=== PATIENT | female | born 1945 | race Caucasian/White ===

== ENCOUNTER → 2018-05-12 08:28 | Outpatient (CLI) | payer MEDICARE, SELFPAY ==
--- NOTE | 2018-05-12 | DI.MG.S_ITS ---
BILATERAL DIGITAL SCREENING MAMMOGRAM 3D/2D WITH CAD: 05/12/2018 CLINICAL: Routine screening. Comparison is made to exams dated: 07/30/2015 mammogram, 12/21/2012 mammogram, and 03/18/2010 mammogram - [facility]. There are scattered fibroglandular elements in both breasts. Current study was also evaluated with a Computer Aided Detection (CAD) system. There is an oval mass in the left breast at 3 o'clock middle depth. No other significant masses, calcifications, or other findings are seen in either breast. IMPRESSION: INCOMPLETE: NEEDS ADDITIONAL IMAGING EVALUATION The oval mass in the left breast likely represents a cyst and is indeterminate. Additional views with possible ultrasound are recommended. This exam was interpreted at Station ID: [id number]. NOTE: For mammograms, a report in lay terms will be sent to the patient. Approximately 15% of breast malignancies will not be visualized mammographically. In the management of a palpable breast mass, a negative mammogram must not discourage biopsy of a clinically suspicious lesion. Electronically Signed By: Riya walters/irvin:05/12/2018 10:55:50 letter sent: Additional Imaging Needed ACR BI-RADS Category 0: Incomplete [id number]
== END ==
PROVIDERS: PCP Physician Assistant; Visit Provider Physician Assistant
DX: Z12.31 Encounter for screening mammogram for malignant neoplasm of breast (principal); R92.8 Other abnormal and inconclusive findings on diagnostic imaging of breast; M85.851 Other specified disorders of bone density and structure, right thigh
CPT/HCPCS: 77063; 77067; 77080

== ENCOUNTER → 2018-05-21 08:34 | Outpatient (CLI) | payer MEDICARE, SELFPAY ==
--- NOTE | 2018-05-21 08:35 | DI.MG.S_ITS ---
UNILATERAL LEFT DIGITAL DIAGNOSTIC MAMMOGRAM 3D/2D WITH ADDITIONAL VIEWS: 05/21/2018 CLINICAL: Additional evaluation requested from prior study. Comparison is made to exams dated: 05/12/2018 mammogram - [facility], 07/30/2015 mammogram, and 12/21/2012 mammogram - [facility]. There are scattered fibroglandular elements in the left breast. The oval mass in the left breast at 3 o'clock middle depth on comparison screening mammogram of 05/12/2018 persists with additional diagnostic views, approximately 4-5 cm from the nipple. No other significant masses, calcifications, or other findings are seen in the breast. IMPRESSION: INCOMPLETE: NEEDS ADDITIONAL IMAGING EVALUATION The oval mass in the left breast at 3 o'clock middle depth on comparison screening mammogram of 05/12/2018 persists with additional diagnostic views. Targeted ultrasound is recommended for further evaluation. This exam was interpreted at Station ID: [id number]. NOTE: For mammograms, a report in lay terms will be sent to the patient. Approximately 15% of breast malignancies will not be visualized mammographically. In the management of a palpable breast mass, a negative mammogram must not discourage biopsy of a clinically suspicious lesion. Electronically Signed By: Alhaji Edwards M.D. ecl/:05/21/2018 11:55:45 letter sent: Additional Imaging Needed ACR BI-RADS Category 0: Incomplete [id number]
--- NOTE | 2018-05-21 08:35 | DI.US.S_ITS ---
ULTRASOUND OF LEFT BREAST: 05/21/2018 CLINICAL: Patient returns for additional imaging over a suspected mass in the left breast. Comparison is made to exams dated: 05/21/2018 mammogram, 05/12/2018 mammogram - [facility], and 07/30/2015 mammogram - [facility]. Real-time and Doppler ultrasound of the left breast were performed. Juarez scale images of the real-time examination were reviewed. There is a benign 0.6 cm x 0.6 cm x 0.5 cm oval cyst with a smooth internal wall in the left breast at 3 o'clock middle depth 4 cm from the nipple. This oval cyst is anechoic with posterior acoustic enhancement. This correlates with mammography findings. Color flow imaging demonstrates that there is no vascularity present. IMPRESSION: BENIGN 1) 0.6 cm x 0.6 cm x 0.5 cm oval simple cyst in the left breast accounts for the initial abnormality seen on screening mammogram. There is no sonographic evidence of malignancy in the left breast. Return to annual mammogram screening schedule is recommended. This exam was interpreted at Station ID: [id number]. Electronically Signed By: Alhaji Edwards M.D. ecl/:05/21/2018 12:08:58 letter sent: Normal Exam Ultrasound BI-RADS: 2 Benign
== END ==
PROVIDERS: PCP Physician Assistant; Visit Provider Physician Assistant
DX: R92.8 Other abnormal and inconclusive findings on diagnostic imaging of breast (principal); N60.02 Solitary cyst of left breast
CPT/HCPCS: 76642; 77065; G0279

== ENCOUNTER → 2018-05-28 08:48 | Outpatient (CLI) | payer MEDICARE, SELFPAY ==
[2018-05-28 10:51] LABS: HEMOLYSIS < 15 (0-50); Iron 101 ug/dL (37-170)
[2018-05-28 11:02] LABS: Percent Iron Saturation 37 % (15-50); Total Iron Binding Capacity 273 ug/dL (265-497); Transferrin 220 mg/dL (206-381)
== END ==
PROVIDERS: PCP Physician Assistant; Visit Provider Physician Assistant
DX: M04.1 Periodic fever syndromes (principal)
CPT/HCPCS: 36415; 82728; 83540; 83550

== ENCOUNTER → 2018-07-02 09:27 | Outpatient (CLI) | payer MEDICARE, SELFPAY ==
--- NOTE | 2018-07-02 | DI.RAD.S_ITS ---
PROCEDURE: FL BARIUM SWALLOW WITH SPEECH PATHOLOGY INDICATIONS: Cough and dysphagia. COMPARISON: None. FINDINGS: A barium swallow fluoroscopy exam was performed in conjunction with speech therapy. The patient swallowed multiple substances of varying consistency that contained or was coated with barium. Imaging was performed in the lateral and AP views. Fluoroscopic exam demonstrated mild residual symmetric in substances within the piriform sinuses which cleared with subsequent swallows. There is no tracheal aspiration or laryngeal penetration. There is a small anterior contour of the lower pharyngeal space which may represent soft tissue thickening adjacent cervical spine osteophytes versus a small cricopharyngeal bar. IMPRESSION: #1. No laryngeal penetration or tracheal aspiration seen. #2. Possible small cricopharyngeal bar versus posterior pharyngeal soft tissue thickening secondary to cervical spine osteophytes. Dictated by: Alhaji Edwards M.D. on 07/02/2018 at 12:54 Approved by: Alhaji Edwards M.D. on 07/02/2018 at 12:58
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
== END ==
PROVIDERS: PCP Physician Assistant; Visit Provider Allergy & Immunology
DX: R05 Cough (principal); R13.10 Dysphagia, unspecified
CPT/HCPCS: 74220; 92611

== ENCOUNTER → 2018-11-03 13:29 | Outpatient (CLI) | payer MEDICARE, SELFPAY ==
--- NOTE | 2018-11-03 13:32 | DI.RAD.S_ITS ---
PROCEDURE: XR LUMBAR SPINE 2-3V INDICATIONS: Suspect osteoarthritis TECHNIQUE: 3 views of the lumbar spine were acquired. COMPARISON: None. FINDINGS: Bones: 5 [id number] vertebrae are present. There is normal bony alignment. No vertebral body compression fractures. No suspicious bony lesions. Intervertebral disc space narrowing, endplate sclerosis, and facet sclerosis is present at L5-S1. Soft tissues: Overlying bowel gas pattern is normal. No suspicious soft tissue calcifications. IMPRESSION: Mild degenerative change. Dictated by: Riya Anne M.D. on 11/03/2018 at 13:58 Approved by: Riya Anne M.D. on 11/03/2018 at 13:59
--- NOTE | 2018-11-03 13:32 | DI.RAD.S_ITS ---
PROCEDURE: XR HIP W PEL IF DONE LT 2V INDICATIONS: Suspect osteoarthritis TECHNIQUE: AP pelvis with lateral view(s) of the left hip(s). COMPARISON: None. FINDINGS: Bones: No fractures or dislocations. Pelvic ring appears intact. No suspicious bony lesions. Soft tissues: The visualized bowel gas pattern is normal. No suspicious soft tissue calcifications. IMPRESSION: No acute radiographic findings. If there is continued pain, followup exam or additional imaging such as MRI or CT could be performed for further assessment. Dictated by: Riya Anne M.D. on 11/03/2018 at 13:59 Approved by: Riya Anne M.D. on 11/03/2018 at 13:59
== END ==
PROVIDERS: PCP Physician Assistant; Visit Provider Physician Assistant
DX: M25.552 Pain in left hip (principal); M54.5 Low back pain; M47.817 Spondylosis without myelopathy or radiculopathy, lumbosacral region
CPT/HCPCS: 72100; 73502

== ENCOUNTER 2019-01-06 12:10 | Day surgery (SDC) | payer MEDICARE, SELFPAY ==
[2019-01-06 12:41] VITALS: BMI 26.2
[2019-01-06 12:55] VITALS: BP 118/72; PULSE 79; RESP 16; TEMP 36.4; O2SAT 95
--- NOTE | 2019-01-06 13:15 | PM.PREOP ---
Pre-operative Note Interval Note History & Physical reviewed/Exam performed by Physician: Yes Changes to H&P: No
[2019-01-06] MEDS: LACTATED RINGERS 1,000 ML 100 ML IV (13:17)
--- NOTE | 2019-01-06 13:53 | SUR.OPER ---
See Anesthesia notes for patient condition
--- NOTE | 2019-01-06 14:02 | PM.OP.ENDO ---
Operative Date/Time/Diagnoses Date of procedure: 01/06/19 Time of procedure: 14:02 Pre-op diagnosis: History of polyps Post-op diagnosis: same Procedure & Clinicians Study performed: Colonoscopy Same procedure as scheduled: Yes Surgeon: Leo Schafer Procedure Notes SCOAP/Timeout: Performed Procedure in detail: The patient was placed in the left lateral decubitus position and underwent deep sedation by anesthesia provider. This was required due to her numerous allergies which included many of the drugs used for moderate sedation plus the fact that she has a very high anxiety. Digital exam was unremarkable. The scope was inserted and advanced through the rectum into the sigmoid, descending, transverse, and ascending colon. No lesions were seen.. The cecum was reached identified by the ileocecal valve and the appendiceal opening. The ileocecal valve was briefly cannulated. The terminal ileum was normal in appearance. The scope was gradually brought out. No Polyps were found. The scope ultimately was retroflexed in the rectum. The appearance was remarkable for small hemorrhoids near the anal verge. The scope was removed and the patient tolerated the procedure well. Prep was very good Scope withdrawal time: 10 min Sedation minutes: 0 (Required deep sedation with monitored anesthesia care) Findings: internal hemorrhoids Specimen(s): none sent Complications: none Recommendations: Colonscopy in 5 years (Due to history of polyps)
[2019-01-06 14:04] VITALS: BP 119/68; PULSE 77; RESP 18; TEMP 36.4; O2SAT 93
[2019-01-06 14:09] VITALS: BP 108/63; PULSE 14; RESP 15; TEMP 36.7; O2SAT 92
[2019-01-06 14:13] VITALS: BP 111/69; PULSE 79; RESP 12; TEMP 36.6; O2SAT 93
[2019-01-06 14:20] VITALS: BP 118/70; PULSE 77; RESP 14; TEMP 36.6; O2SAT 95
== END 2019-01-06 14:40 | disposition home or self-care (01) ==
PROVIDERS: PCP Physician Assistant; Visit Provider Specialist
PROC: 0DJD8ZZ Inspection of Lower Intestinal Tract, Via Natural or Artificial Opening Endoscopic (ICD-10-PCS; CPT 45378; principal; 2019-01-06 13:45)
DX: Z86.010 Personal history of colon polyps (principal); K64.8 Other hemorrhoids
CPT/HCPCS: G0105; 99152; J2704

== ENCOUNTER → 2019-01-24 10:34 | Outpatient (CLI) | payer MEDICARE, SELFPAY | PROVIDERS: PCP Physician Assistant; Visit Provider Physician Assistant ==

== ENCOUNTER → 2019-01-26 14:34 | Outpatient (CLI) | payer MEDICARE, SELFPAY | PROVIDERS: PCP Physician Assistant; Visit Provider Physician Assistant | DX: R19.7 Diarrhea, unspecified (principal) | CPT/HCPCS: 87045; 87077; 87899 ==

== ENCOUNTER → 2019-01-26 15:11 | Outpatient (CLI) | payer MEDICARE, SELFPAY | PROVIDERS: PCP Physician Assistant; Visit Provider Physician Assistant ==

== ENCOUNTER → 2019-02-09 10:49 | Outpatient (CLI) | payer MEDICARE, SELFPAY ==
[2019-02-09 11:19] LABS: Add Manual Diff / Slide Review NO; Basophils Absolute Auto 100 /uL (0-100); Basophils Percent Auto 1.2 % (0-2); Eosinophils Absolute Auto 200 /uL (0-450); Eosinophils Percent Auto 3.6 % (2-4); Hemoglobin 14.7 g/dL (12.0-16.0); Lymphocytes Absolute Auto 1600 /uL (1100-4500); Lymphocytes Percent Auto 25.4 % (25-40); Mean Corpuscular HGB Conc 34.3 % (30-36); Mean Corpuscular Hemoglobin 30.9 PG (26-34); Mean Corpuscular Volume 90.2 fL (80-100); Monocytes Absolute Auto 500 /uL (0-900); Monocytes Percent Auto 7.7 % (3-14); Neutrophils Absolute Auto 4000 /uL (1500-7000); Neutrophils Percent Auto 62.1 % (50-75); Platelet Count 220 X10^3/uL (150-400); Red Blood Cell Count 4.76 X10^6/uL (4.0-5.2); Red Cell Distribution Width 12.6 % (11.6-14.8); White Blood Cell Count 6.5 X10^3/uL (4.5-11.0)
[2019-02-09 11:33] LABS: Erythrocyte Sedimentation Rate 4 MM/HR (0-20)
[2019-02-09 12:02] LABS: Alanine Aminotransferase 26 IU/L (9-52); Albumin 3.8 g/dL (3.5-5.0); Albumin Globulin Ratio 1.5 (1.0-2.8); Alkaline Phosphatase 60 U/L (38-126); Aspartate Aminotransferase 19 IU/L (14-36); BUN Creatinine Ratio 11.8 (6-22); Bilirubin Total 0.5 mg/dL (0.2-1.3); Blood Urea Nitrogen 13 mg/dL (7-17); C-Reactive Protein Quant 0.9 mg/dL (<1.0); Calcium 9.3 mg/dL (8.4-10.2); Carbon Dioxide 30 mmol/L (22-32); Chloride 103 mmol/L (98-107); Globulin 2.5 g/dL (1.7-4.1); Glucose 96 mg/dL (80-110); HEMOLYSIS < 15 (0-50); Sodium 141 mmol/L (137-145); Total Protein 6.3 g/dL (6.3-8.2)
[2019-02-09 16:07] LABS: Microalbumin Urine Random 0.8 mg/dL (0-1.6)
[2019-02-09 16:15] LABS: Creatinine Urine Random 182.2 mg/dL; Microalbumi Creatinin Ratio Ur 4.3 ug/mg CR (<30)
== END ==
PROVIDERS: PCP Physician Assistant; Visit Provider Physician Assistant
DX: I88.9 Nonspecific lymphadenitis, unspecified (principal); M04.1 Periodic fever syndromes; R19.7 Diarrhea, unspecified
CPT/HCPCS: 36415; 80053; 82043; 82570; 85025; 85651; 86140

== ENCOUNTER → 2019-04-21 19:31 | Outpatient (CLI) | payer MEDICARE, SELFPAY | PROVIDERS: PCP Physician Assistant; Visit Provider Physician Assistant | DX: N39.0 Urinary tract infection, site not specified (principal) | CPT/HCPCS: 87086 ==

== ENCOUNTER 2019-06-14 12:30 | Outpatient (RCR) | payer MEDICARE, SELFPAY ==
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
== END 2019-06-15 12:34 ==
LOC: SP 12:30
PROVIDERS: PCP Physician Assistant; Visit Provider Allergy & Immunology
DX: R05 Cough (principal)
CPT/HCPCS: 92507; 92520; 92524; 92526; 92610; 96125

== ENCOUNTER → 2019-06-14 13:26 | Outpatient (CLI) | payer MEDICARE, SELFPAY ==
[2019-06-14 15:11] LABS: BUN Creatinine Ratio 14.2 (6-22); Blood Urea Nitrogen 17 mg/dL (7-17); Calcium 9.5 mg/dL (8.4-10.2); Carbon Dioxide 30 mmol/L (22-32); Chloride 103 mmol/L (98-107); Estimated Glomerular Filt Rate 44.3 mL/min (>60); Glucose 82 mg/dL (80-110); HEMOLYSIS < 15 (0-50); Sodium 140 mmol/L (137-145)
[2019-06-14 15:43] LABS: Creatinine Urine Random 187.1 mg/dL; Protein (Total) Urine Random 7 mg/dL (0-12); Protein Creatinine Ratio Urine 0.03 GRAM/24H
== END ==
PROVIDERS: PCP Physician Assistant; Visit Provider Physician Assistant
DX: M04.1 Periodic fever syndromes (principal); R79.89 Other specified abnormal findings of blood chemistry; R82.90 Unspecified abnormal findings in urine
CPT/HCPCS: 36415; 80048; 82570; 84156

== ENCOUNTER → 2019-12-08 11:43 | Outpatient (CLI) | payer MEDICARE, SELFPAY ==
[2019-12-08 12:49] LABS: BUN Creatinine Ratio 14.5 (6-22); Blood Urea Nitrogen 16 mg/dL (7-17); Calcium 9.4 mg/dL (8.4-10.2); Carbon Dioxide 29 mmol/L (22-32); Chloride 101 mmol/L (98-107); Estimated Glomerular Filt Rate 48.8 mL/min (>60); Glucose 114 mg/dL (80-110); HEMOLYSIS < 15 (0-50); Potassium 3.6 mmol/L (3.4-5.1); Sodium 140 mmol/L (137-145)
[2019-12-08 12:56] LABS: Creatinine Urine Random 292.9 mg/dL
[2019-12-08 13:28] LABS: Microalbumi Creatinin Ratio Ur 4.4 ug/mg CR (<30); Microalbumin Urine Random 1.3 mg/dL (0-1.6)
== END ==
PROVIDERS: PCP Physician Assistant; Referring Provider Physician Assistant; Visit Provider Physician Assistant
DX: R79.89 Other specified abnormal findings of blood chemistry (principal)
CPT/HCPCS: 36415; 80048; 82043; 82570

== ENCOUNTER → 2020-07-10 09:46 | Outpatient (CLI) | payer MEDICARE, SELFPAY ==
[2020-07-10 12:16] LABS: Alanine Aminotransferase 13 IU/L (<35); Albumin 3.9 g/dL (3.5-5.0); Albumin Globulin Ratio 1.6 (1.0-2.8); Alkaline Phosphatase 70 U/L (38-126); Aspartate Aminotransferase 19 IU/L (14-36); BUN Creatinine Ratio 11.3 (6-22); Bilirubin Total 0.5 mg/dL (0.2-1.3); Blood Urea Nitrogen 14 mg/dL (7-17); Calcium 9.3 mg/dL (8.4-10.2); Carbon Dioxide 29 mmol/L (22-32); Chloride 104 mmol/L (98-107); Estimated Glomerular Filt Rate 42.5 mL/min (>60); Globulin 2.5 g/dL (1.7-4.1); Glucose 116 mg/dL (80-110); HEMOLYSIS < 15 (0-50); Potassium 4.3 mmol/L (3.4-5.1); Sodium 139 mmol/L (137-145); Total Protein 6.4 g/dL (6.3-8.2)
== END ==
PROVIDERS: PCP Nurse Practitioner; Referring Provider Nurse Practitioner; Visit Provider Nurse Practitioner
DX: N28.9 Disorder of kidney and ureter, unspecified (principal); R73.01 Impaired fasting glucose
CPT/HCPCS: 36415; 80053

== ENCOUNTER → 2020-07-31 12:14 | Outpatient (CLI) | payer MEDICARE, SELFPAY ==
[2020-08-01 08:43] LABS: Fecal Immunochemical Test Negative (Negative)
== END ==
PROVIDERS: PCP Nurse Practitioner; Referring Provider Nurse Practitioner; Visit Provider Nurse Practitioner
DX: Z12.11 Encounter for screening for malignant neoplasm of colon (principal)
CPT/HCPCS: 82274

== ENCOUNTER → 2021-01-28 15:44 | Outpatient (CLI) | payer MEDICARE, SELFPAY ==
[2021-01-28 16:26] LABS: Add Manual Diff / Slide Review NO; Alanine Aminotransferase 20 IU/L (<35); Albumin 4.1 g/dL (3.5-5.0); Albumin Globulin Ratio 1.6 (1.0-2.8); Alkaline Phosphatase 71 U/L (38-126); Aspartate Aminotransferase 25 IU/L (14-36); BUN Creatinine Ratio 12.4 (6-22); Basophils Absolute Auto 100 /uL (0-100); Basophils Percent Auto 1.2 % (0-2); Bilirubin Total 0.4 mg/dL (0.2-1.3); Blood Urea Nitrogen 15 mg/dL (7-17); Calcium 9.5 mg/dL (8.4-10.2); Carbon Dioxide 27 mmol/L (22-32); Chloride 104 mmol/L (98-107); Cholesterol 196 mg/dL (140-199); Eosinophils Absolute Auto 100 /uL (0-450); Eosinophils Percent Auto 1.7 % (2-4); Estimated Glomerular Filt Rate 43.6 mL/min (>60); Globulin 2.6 g/dL (1.7-4.1); Glucose 98 mg/dL (80-110); HDL Cholesterol 34 mg/dL (40-60); HEMOLYSIS < 15 (0-50); Hematocrit 43.2 % (36-46); Hemoglobin 14.3 g/dL (12.0-16.0); LDL Cholesterol Calculated 101 mg/dL (<100); Lymphocytes Absolute Auto 1900 /uL (1100-4500); Lymphocytes Percent Auto 22.8 % (25-40); Mean Corpuscular HGB Conc 33.2 % (30-36); Mean Corpuscular Volume 90.3 fL (80-100); Monocytes Absolute Auto 600 /uL (0-900); Monocytes Percent Auto 7.4 % (3-14); Neutrophils Absolute Auto 5700 /uL (1500-7000); Neutrophils Percent Auto 66.9 % (50-75); Platelet Count 257 X10^3/uL (150-400); Red Blood Cell Count 4.78 X10^6/uL (4.0-5.2); Red Cell Distribution Width 12.6 % (11.6-14.8); Sodium 139 mmol/L (137-145); Total Protein 6.7 g/dL (6.3-8.2); Triglycerides 303 mg/dL (35-150); White Blood Cell Count 8.6 X10^3/uL (4.5-11.0)
[2021-01-28 16:50] LABS: Erythrocyte Sedimentation Rate 5 MM/HR (0-20)
[2021-01-28 16:56] LABS: TSH w/ Reflex to FT4 1.41 uIU/mL (0.47-4.68)
== END ==
PROVIDERS: PCP Family Medicine; Referring Provider Family Medicine; Visit Provider Family Medicine
DX: E78.1 Pure hyperglyceridemia (principal); R52 Pain, unspecified; R53.83 Other fatigue
CPT/HCPCS: 36415; 80053; 80061; 84443; 84550; 85025; 85651

== ENCOUNTER → 2021-02-18 16:25 | Outpatient (CLI) | payer MEDICARE, SELFPAY ==
--- NOTE | 2021-02-18 16:28 | DI.RAD.S_ITS ---
PROCEDURE: XR THORACIC SPINE 3V INDICATIONS: Progressive lower and upper back pain TECHNIQUE: 3 views of the thoracic spine were acquired. COMPARISON: None. FINDINGS: Bones: No fractures or dislocations. No suspicious bony lesions. 12 pairs of ribs are noted, and appear intact where visualized. Soft tissues: No paravertebral stripe thickening. 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 Dictated by: Anthony Amin M.D. on 02/18/2021 at 17:43 Approved by: Anthony Amin M.D. on 02/18/2021 at 17:44
--- NOTE | 2021-02-18 16:28 | DI.RAD.S_ITS ---
PROCEDURE: XR LUMBAR SPINE 2-3V INDICATIONS: Progressive lower and upper back pain TECHNIQUE: 3 views of the lumbar spine were acquired. COMPARISON: [facility], CR, XR LUMBAR SPINE 2-3V, 11/03/2018, 13:40. FINDINGS: Bones: 5 [id number] vertebrae are present. There is normal bony alignment. No vertebral body compression fractures. No suspicious bony lesions. Soft tissues: Overlying bowel gas pattern is normal. No suspicious soft tissue calcifications. IMPRESSION: Source of new back pain is not found. 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 The mild degenerative disc disease previously present has not appreciably worsened. No compression fracture seen. Dictated by: Anthony Amin M.D. on 02/18/2021 at 17:42 Approved by: Anthony Amin M.D. on 02/18/2021 at 17:43
== END ==
PROVIDERS: PCP Family Medicine; Referring Provider Family Medicine; Visit Provider Family Medicine
DX: M54.5 Low back pain (principal); M47.816 Spondylosis without myelopathy or radiculopathy, lumbar region; M51.36 Other intervertebral disc degeneration, lumbar region; M51.34 Other intervertebral disc degeneration, thoracic region
CPT/HCPCS: 72072; 72100

== ENCOUNTER → 2022-09-23 11:41 | Outpatient (CLI) | payer MEDICARE, SELFPAY ==
--- NOTE | 2022-09-23 | DI.US.S_ITS ---
LIMITED ULTRASOUND OF RIGHT BREAST AND AXILLA: 09/23/2022 CLINICAL: Patient returns today to evaluate an asymmetry in the right breast. Comparison is made to exams dated: 09/23/2022 mammogram - [facility], 07/24/2022 mammogram - outside location, 05/12/2018 mammogram - [facility], 07/30/2015 mammogram, 12/21/2012 mammogram, and 03/18/2010 mammogram - [facility]. Color flow ultrasound of the right breast upper outer quadrant and axilla regions was performed. Juarez scale images of the real-time examination were reviewed. There is a 1.3 cm x 0.8 cm x 0.7 cm oval cyst in the right breast at 11 o'clock middle depth 5 cm from the nipple. This correlates with mammography findings. Color flow imaging demonstrates that there is no vascularity present. Incidentally found is a 0.6 cm x 0.3 cm x 0.3 cm irregular mass with a microlobulated margin in the right breast at 10 o'clock anterior depth 3 cm from the nipple. This irregular mass is hypoechoic with posterior acoustic shadowing. Color flow imaging demonstrates that there is vascularity present. There also is a 0.5 cm x 1 cm x 0.5 cm irregular complicated cyst in the right breast at 9 o'clock posterior depth 8 cm from the nipple. This irregular complicated cyst is hypoechoic. This correlates as an incidental finding. There are related micro calcifications. Color flow imaging demonstrates that there is vascularity present. No significant abnormalities were seen sonographically in the right axilla. IMPRESSION: SUSPICIOUS OF MALIGNANCY The 1.3 cm cyst in the right breast at 11 o'clock middle depth correlates with the mammographic finding, is consistent with a simple cyst and is benign. The 0.6 cm x 0.3 cm x 0.3 cm irregular mass in the right breast at 10 o'clock anterior depth most likely is a scar but is at a low suspicion for malignancy. An ultrasound guided biopsy is recommended. The 0.5 cm x 1 cm x 0.5 cm irregular complicated cyst in the right breast at 9 o'clock posterior depth is consistent with a complicated cyst and is probably benign. A follow-up ultrasound in 6 months is recommended. Findings and recommendations were discussed with the patient in person by Dr. Marino at time of exam. This exam was interpreted at Station ID: [id number]. Electronically Signed By: Evelyne monte/:09/23/2022 14:10:57 letter sent: Biopsy Required Ultrasound BI-RADS: 4a Low suspicion for malignancy
--- NOTE | 2022-09-23 | DI.MG.S_ITS ---
UNILATERAL RIGHT DIGITAL DIAGNOSTIC MAMMOGRAM 3D/2D WITH ADDITIONAL VIEWS: 09/23/2022 CLINICAL: Additional evaluation requested from prior study. Comparison is made to exams dated: 07/24/2022 mammogram - outside location, 05/12/2018 mammogram - [facility], and 07/30/2015 mammogram - [facility]. There are scattered areas of fibroglandular density in the right breast (category b / 25%-50% glandular tissue). There is a new 1 cm irregular equal density asymmetry with a circumscribed margin in the right breast at 11 o'clock anterior depth. This is seen in additional views. No other significant masses or calcifications are seen in the breast. IMPRESSION: INCOMPLETE: NEEDS ADDITIONAL IMAGING EVALUATION The 1 cm asymmetry in the right breast remains indeterminate. Ultrasound is recommended for full evaluation of this area. This was performed immediately following this exam. Based on the Tyrer Cuzick model (a risk assessment model) the patient's lifetime risk is 3.2% and her 10 year risk is 2.9%. According to the ACR, ACS, and NCCN guidelines, an annual breast MRI exam along with mammogram is recommended if the patient's lifetime risk is 20% or greater. This exam was interpreted at Station ID: [id number]. NOTE: For mammograms, a report in lay terms will be sent to the patient. Approximately 15% of breast malignancies will not be visualized mammographically. In the management of a palpable breast mass, a negative mammogram must not discourage biopsy of a clinically suspicious lesion. Electronically Signed By: Evelyne monte/:09/23/2022 12:14:54 ACR BI-RADS Category 0: Incomplete [id number]
== END ==
PROVIDERS: PCP Nurse Practitioner Family; Referring Provider Nurse Practitioner Family; Visit Provider Nurse Practitioner Family
DX: R92.8 Other abnormal and inconclusive findings on diagnostic imaging of breast (principal); N60.01 Solitary cyst of right breast; N63.11 Unspecified lump in the right breast, upper outer quadrant
CPT/HCPCS: 76642; 77065; G0279

== ENCOUNTER → 2023-10-05 08:51 | Outpatient (CLI) | payer MEDICARE, SELFPAY ==
--- NOTE | 2023-10-05 20:49 | DI.NM.S_ITS ---
DATE OF SERVICE: 10/05/2023 PROCEDURE: Exercise perfusion study. INDICATIONS: Chest pain with underlying aortic insufficiency. RADIOPHARMACEUTICAL: 26.1 millicurie technetium-99m Myoview IV was injected at stress and 12.9 millicurie technetium-99m Myoview IV was injected at rest. CARDIAC STRESS: The patient underwent exercise perfusion study under the supervision of an attending staff. The patient walked on [place] protocol for 6 minutes and achieved maximum heart rate of 151, which was 104% of target heart rate. Normal hemodynamic response. Blood pressure 138/80 at rest and peak blood pressure 176/78. Achieved 7 METS of workload. LICO -13%. Baseline rhythm sinus with repolarization changes. During stress, nonspecific upsloping ST depression in inferolateral leads without any obvious ischemic changes. No significant arrhythmias. No chest pain or anginal symptoms. The patient had some shortness of breath. RAW DATA: Breast shadow seen. GATED STUDY: Resting LV ejection fraction 90% and stress LV ejection fraction 94%, likely due to low resting and diastolic volume 40 mL. No obvious wall motion abnormalities. TID ratio 0.88, which is within normal limits. Lung/heart ratio 0.21, which is within normal limits. MYOCARDIAL PERFUSION SCAN: Stress supine and stress prone images revealed normal myocardial perfusion. CONCLUSION: This is a normal myocardial perfusion study. Summed stress score is zero. Fair exercise tolerance. Normal blood pressure response. No convincing ischemic EKG changes. No significant arrhythmias. No chest pain. Overall, low-risk exercise perfusion study. Jodie Barber - CARYN/nu/CEDRIC doc#: [id number]/job#: [id number] dd: 10/05/2023 16:27:00 dt: 10/05/2023 20:40:00 DICTATING MD/COPIES TO: Oma Robledo MD COPIES MNE: SULEMAN;
== END ==
PROVIDERS: PCP Family Medicine; Referring Provider Internal Medicine Cardiovascular Disease; Visit Provider Internal Medicine Cardiovascular Disease
DX: R07.89 Other chest pain (principal); I35.1 Nonrheumatic aortic (valve) insufficiency
CPT/HCPCS: 78452; 93017; A9502